=== PATIENT | male | born 1940 | race Caucasian/White ===

== ENCOUNTER 2024-07-15 10:00 | Outpatient (CLI) | payer MEDICARE, OTHER ==
[2024-07-14 13:46] LABS: ALBUMIN 3.9 G/DL (3.4-5.0); ANION GAP 9 (8-16); BLOOD UREA NITROGEN 21 MG/DL (7-18); BUN/CREATININE RATIO 19.3 (10.0-20.0); CHLORIDE 106 MMOL/L (99-107); CREATININE 1.09 MG/DL (0.60-1.10); GLUCOSE 102 MG/DL (70-104); POTASSIUM 4.2 MMOL/L (3.5-5.1); SODIUM 139 MMOL/L (135-145); TOTAL CARBON DIOXIDE 24.3 MMOL/L (24-32); eGFR 65 ML/MIN
[2024-07-15] MEDS ORDERED: iohexol 350MG/ML 100ml bottle IV ONE (10:20)
== END 2024-07-15 23:59 | disposition home or self-care (01) ==
LOC: RAD 10:00
PROVIDERS: ATTEND Internal Medicine Interventional Cardiology
DX: I71.21 Aneurysm of the ascending aorta, without rupture (principal); I71.010 Dissection of ascending aorta; J98.11 Atelectasis; J98.4 Other disorders of lung; I10 Essential (primary) hypertension; E78.5 Hyperlipidemia, unspecified
CPT/HCPCS: 36415; 71275; 74174; 80048; Q9967